=== PATIENT | male | born 1940 | race Caucasian/White ===

== ENCOUNTER → 2018-07-17 | Outpatient (REF) | payer MEDICARE ==
[~2018-07-17] MED LIST: CARAFATE1 GM PO; CELEXA20 M1 PO; CITALOPRAM20 MG PO; FAMOTIDINE40 M1 OR; FAMOTIDINE40 M1 PO; FLUZONE SPLT1 M1 IM; METOPROLOL SUCC25 MG PO; OMEPRAZOLE20 M1 PO; PEPCID40 MG PO; PRAVASTATIN40 MG PO; TRIAMCINOLON0.13 EX; ZOSTAVAX IM
== END | disposition home or self-care (01) ==
LOC: CT 09:42
PROVIDERS: ATTEND Nurse Practitioner
DX: R93.6 Abnormal findings on diagnostic imaging of limbs (principal)

== ENCOUNTER 2021-05-02 08:05 | Observation (INO) | payer MEDICARE ==
[~2021-05-02] VITALS: Ht 172.7 cm; Wt 90.0 kg
[2021-05-02 08:29] LABS: HEMATOCRIT 46.2 % (39.0-50.0); IMMATURE GRANULOCYTES 0.7 % (0.0-5.0); MEAN CELL VOLUME 98.7 fL CALC (80.0-100.0); MEAN CORPUSCULAR HGB 32.1 pG CALC (26.0-32.0); MEAN CORPUSCULAR HGB CONC 32.5 g/dL CAL (32.0-36.0); NEUT# 6.65 thou/uL (1.82-7.42); RED BLOOD COUNT 4.68 mill/uL (4.70-6.10); RED CELL DISTRI WIDTH 12.7 % (11.5-15.5)
[2021-05-02 08:41] LABS: ALBUMIN 4.1 g/dL (3.2-5.0); ALKALINE PHOSPHATASE 56 u/l (38-126); ANION GAP 13 (6-22 (CALC)); BUN 12 mg/dL (8-23); BUN/CREATININE RATIO 13 (12-20 (CALC)); CARBON DIOXIDE 25 mmol/l (22-30); CHLORIDE 104 mmol/l (95-108); CREATININE 0.9 mg/dL (0.7-1.3); GFR > 60 ML/MIN (>=60 (CALC)); GFR FOR AFR.AMER. > 60 ML/MIN (>=60 (CALC)); SGOT/AST 37 u/l (19-48); SODIUM 138 mmol/l (137-146); TOTAL PROTEIN 7.8 g/dL (6.3-8.2)
[2021-05-02 08:46] LABS: PROTHROMBIN TIME 10.2 SECONDS (9.0-12.5)
[2021-05-02 08:49] LABS: BILIRUBIN, TOTAL 0.9 mg/dL (0.0-1.4)
[2021-05-02] MEDS ORDERED: LISINOPRIL20 MG PO (10:25)
[2021-05-02 10:57] VITALS: BP 140/81
[2021-05-02 16:50] VITALS: BP 136/82
[2021-05-02 18:57] LABS: URINE BILIRUBIN - DIPSTICK NEGATIVE (NEGATIVE); URINE BLOOD DIPSTICK NEGATIVE (NEGATIVE); URINE COLOR YELLOW; URINE GLUCOSE - DIPSTICK NEGATIVE (NEGATIVE); URINE KETONE TRACE mg/dL (NEGATIVE); URINE LEUK ESTERASE NEGATIVE (NEGATIVE); URINE PROTEIN - DIPSTICK NEGATIVE (NEG-TRACE); URINE SPECIFIC GRAVITY 1.025
[2021-05-02 19:00] VITALS: BP 153/76
[2021-05-02 19:08] LABS: URINE NITRITE - DIPSTICK NEGATIVE (Negative)
[2021-05-03] VITALS: BP 129/75
[2021-05-03 04:00] VITALS: BP 115/57
[2021-05-03 06:29] LABS: HEMATOCRIT 44.9 % (39.0-50.0); HEMOGLOBIN 15.2 g/dl (14.0-18.0); MEAN CELL VOLUME 97.2 fL CALC (80.0-100.0); MEAN CORPUSCULAR HGB 32.9 pG CALC (26.0-32.0); MEAN CORPUSCULAR HGB CONC 33.9 g/dL CAL (32.0-36.0); RED BLOOD COUNT 4.62 mill/uL (4.70-6.10); RED CELL DISTRI WIDTH 12.6 % (11.5-15.5)
[2021-05-03 06:42] LABS: ANION GAP 13 (6-22 (CALC)); BUN 8 mg/dL (8-23); BUN/CREATININE RATIO 11 (12-20 (CALC)); CALCULATED LDLCHOLESTEROL 77 mg/dL (62-129 (CALC)); CARBON DIOXIDE 24 mmol/l (22-30); CHLORIDE 106 mmol/l (95-108); CHOLESTEROL HDL RATIO 3.8 (<4.4 (CALC)); CREATININE 0.8 mg/dL (0.7-1.3); GFR > 60 ML/MIN (>=60 (CALC)); GFR FOR AFR.AMER. > 60 ML/MIN (>=60 (CALC)); HDL CHOLESTEROL 36 mg/dL (>=40); MAGNESIUM 1.8 mg/dL (1.6-2.3); POTASSIUM 4.5 mmol/l (3.5-5.1); SODIUM 139 mmol/l (137-146); TOTAL CHOLESTEROL 134 mg/dl (0-199); TOTAL TRIGLYCERIDES 106 mg/dl (30-149); VLDL CHOLESTROL 21 mg/dl (0-38 (CALC))
[2021-05-03 07:00] VITALS: BP 118/57
[2021-05-03] MEDS ORDERED: ASPIRIN 81 LOW81 MG PO (10:43)
[2021-05-03 11:34] VITALS: BP 136/72
== END 2021-05-03 11:35 | disposition home or self-care (01) ==
LOC: ED 08:05 → ED-I 09:25 → ED 09:48 → MS2 09:49
PROVIDERS: Family Medicine; Nurse Practitioner; ADMIT Hospitalist; ATTEND Hospitalist
DX: G45.9 Transient cerebral ischemic attack, unspecified (principal); F10.10 Alcohol abuse, uncomplicated; I10 Essential (primary) hypertension; E78.5 Hyperlipidemia, unspecified; H91.90 Unspecified hearing loss, unspecified ear; K21.9 Gastro-esophageal reflux disease without esophagitis; Z79.82 Long term (current) use of aspirin; Z20.822 Contact with and (suspected) exposure to COVID-19
CPT/HCPCS: G0378; J1650; Q9967

== ENCOUNTER 2022-10-16 16:39 | Emergency (ER) | payer MEDICARE ==
[~2022-10-16] VITALS: Ht 172.7 cm; Wt 117.9 kg
[2022-10-16] VITALS (8 sets, daily range): BP systolic 121–153; BP diastolic 48–116
[~2022-10-16 16:39] MED LIST changes: +ASPIRIN 81 LOW81 MG PO; +LISINOPRIL20 MG PO
[2022-10-16 17:25] LABS: BASO% 0.1 % (0-3); EOS% 1.5 % (0-8); HEMATOCRIT 48.1 % (39.0-50.0); HEMOGLOBIN 15.6 g/dl (14.0-18.0); IMMATURE GRANULOCYTES 0.4 % (0.0-5.0); LYMPH% 9.2 % (15-41); MEAN CELL VOLUME 99.8 fL CALC (80.0-100.0); MEAN CORPUSCULAR HGB 32.4 pG CALC (26.0-32.0); MEAN CORPUSCULAR HGB CONC 32.4 g/dL CAL (32.0-36.0); MONO% 8.1 % (2-13); NEUT# 13.51 thou/uL (1.82-7.42); NEUT% 80.7 % (42-76); RED BLOOD COUNT 4.82 mill/uL (4.70-6.10); RED CELL DISTRI WIDTH 12.5 % (11.5-15.5)
[2022-10-16 17:38] LABS: ALBUMIN 4.7 g/dL (3.2-5.0); ALKALINE PHOSPHATASE 67 u/l (38-126); ANION GAP 15 (6-22 (CALC)); BUN 15 mg/dL (8-23); BUN/CREATININE RATIO 14 (12-20 (CALC)); CARBON DIOXIDE 24 mmol/l (22-30); CHLORIDE 104 mmol/l (95-108); CREATININE 1.1 mg/dL (0.7-1.3); GFR FOR AFR.AMER. > 60 ML/MIN (>=60 (CALC)); GFR OTHER RACES > 60 ML/MIN (>=60 (CALC)); LIPASE 79 u/l (23-300); POTASSIUM 4.1 mmol/l (3.5-5.1); SGOT/AST 45 u/l (19-48); SODIUM 140 mmol/l (137-146); TOTAL PROTEIN 8.3 g/dL (6.3-8.2)
[2022-10-16 17:48] LABS: BILIRUBIN, TOTAL 0.6 mg/dL (0.2-1.3)
[2022-10-16 18:34] LABS: URINE BILIRUBIN - DIPSTICK NEGATIVE (NEGATIVE); URINE BLOOD DIPSTICK NEGATIVE (NEGATIVE); URINE COLOR YELLOW; URINE GLUCOSE - DIPSTICK NEGATIVE (NEGATIVE); URINE KETONE NEGATIVE (NEGATIVE); URINE LEUK ESTERASE NEGATIVE (NEGATIVE); URINE PROTEIN - DIPSTICK TRACE mg/dL (NEG-TRACE); URINE UROBILINOGEN - DIPSTICK 0.2 E.U./dL (0.2)
[2022-10-16 18:39] LABS: URINE NITRITE - DIPSTICK NEGATIVE (Negative)
[2022-10-16] MEDS ORDERED: AZITHROMYCIN500 MG PO (20:32)
[2022-10-16] MEDS ORDERED: ONDANSETRON4 MG PO (20:33)
== END 2022-10-16 20:44 | disposition home or self-care (01) ==
LOC: ED 16:39
PROVIDERS: Nurse Practitioner
DX: A04.4 Other intestinal Escherichia coli infections (principal); I10 Essential (primary) hypertension
CPT/HCPCS: Q9967

== ENCOUNTER 2022-12-09 07:59 | Day surgery (SDC) | payer MEDICARE ==
[~2022-12-09] VITALS: Ht 175.3 cm; Wt 97.5 kg
[~2022-12-09 07:59] MED LIST changes: +AZITHROMYCIN500 MG PO; +ONDANSETRON4 MG PO
[2022-12-09 10:25] VITALS: BP 131/73
== END 2022-12-09 10:35 | disposition home or self-care (01) ==
LOC: ENDO 07:59
PROVIDERS: ATTEND Internal Medicine Gastroenterology
PROC: 0DBM8ZX Excision of Descending Colon, Via Natural or Artificial Opening Endoscopic, Diagnostic (ICD-10-PCS; principal; 2022-12-09)
PROC: 0DBE8ZX Excision of Large Intestine, Via Natural or Artificial Opening Endoscopic, Diagnostic (ICD-10-PCS; 2022-12-09)
PROC: 0DB98ZX Excision of Duodenum, Via Natural or Artificial Opening Endoscopic, Diagnostic (ICD-10-PCS; 2022-12-09)
PROC: 0DB78ZX Excision of Stomach, Pylorus, Via Natural or Artificial Opening Endoscopic, Diagnostic (ICD-10-PCS; 2022-12-09)
PROC: 0DB48ZX Excision of Esophagogastric Junction, Via Natural or Artificial Opening Endoscopic, Diagnostic (ICD-10-PCS; 2022-12-09)
DX: K63.5 Polyp of colon (principal); K57.30 Diverticulosis of large intestine without perforation or abscess without bleeding; K64.8 Other hemorrhoids; K29.70 Gastritis, unspecified, without bleeding; K31.9 Disease of stomach and duodenum, unspecified; K58.2 Mixed irritable bowel syndrome; I10 Essential (primary) hypertension; E78.5 Hyperlipidemia, unspecified; Z79.899 Other long term (current) drug therapy